=== PATIENT | male | born 2000 | race Caucasian/White ===

== ENCOUNTER 2024-08-30 16:03 | Outpatient (CLI) | payer OTHER ==
--- NOTE | 2024-08-30 18:29 | RADIOLOGY REPORT ---
CLINICAL INDICATION: ACHILLES TENINITIS, R/L, EFFUSION R/L ANKLE COMPARISON: None TECHNIQUE: Multiplanar, multisequence MRI of the left ankle was performed without intravenous contra st. Contrast: None INTERPRETATION: Bones: No evidence of acute fracture. Patchy bone marrow edema in the distal tibia and the talus Alignment: Unremarkable. Ligaments: The anterior talofibular ligament is intact. The posterior talofibular ligament is intact. The calcaneofibular ligament is intact. The inferior tibiofibular ligaments are intact. The visualiz ed portions of the deltoid and spring ligaments are intact. Tendons:The Achilles tendon is intact. The peroneal tendons are intact. The posterior tibialis, fle xor hallucis longus and flexor digitorum longus tendons are intact. The dorsal extensor tendons are intact. Plantar Fascia: The medial cord of the plantar fascia is intact. Bursae: The retroachilles bursa is not fluid distended. The retrocalcaneal bursa is not fluid diste nded. Mass/Fluid: No significant joint effusion. No mass or fluid in the sinus tarsi. Muscles: Intrinsic muscles of the foot are unremarkable. IMPRESSION: 1. Patchy bone marrow edema in the distal tibia and talus of the left ankle is nonspecific. No acute fracture or marrow replacing lesion. Findings could be related to impaction injury or stress reactio n. 2. No Achilles tendinopathy or tear.
--- NOTE | 2024-08-30 18:41 | RADIOLOGY REPORT ---
CLINICAL INDICATION: RT ANKLE ACHILLES COMPARISON: None TECHNIQUE: Multiplanar, multisequence MRI of the right ankle was performed without intravenous contr ast. Contrast: None INTERPRETATION: Bones: No evidence of acute fracture. No evidence of marrow replacing lesion. Alignment: Unremarkable. Ligaments: The anterior talofibular ligament is intact. The posterior talofibular ligament is intact. The calcaneofibular ligament is intact. The inferior tibiofibular ligaments are intact. Ossification in the deltoid ligament suggesting old injury. Spring ligament is intact. Tendons:The Achilles tendon is intact. The peroneal tendons are intact. The posterior tibialis, fle xor hallucis longus and flexor digitorum longus tendons are intact. The dorsal extensor tendons are intact. Plantar Fascia: The medial cord of the plantar fascia is intact. Bursae: The retroachilles bursa is not fluid distended. The retrocalcaneal bursa is not fluid diste nded. Mass/Fluid: No significant joint effusion. No mass or fluid in the sinus tarsi. Muscles: Intrinsic muscles of the foot are unremarkable. Soft tissues: There is a low signal intensity focus in the skin could reflect calcification or foreig n body. IMPRESSION: 1. Achilles tendon intact in the right ankle. 2. Remote injury to the deltoid ligament. 3. No acute soft tissue or osseous abnormality.
== END 2024-08-30 23:59 | disposition home or self-care (01) ==
LOC: MRI02 16:03
PROVIDERS: ATTEND Podiatrist Foot & Ankle Surgery
DX: S99.911A Unspecified injury of right ankle, initial encounter (principal); M76.61 Achilles tendinitis, right leg; M76.62 Achilles tendinitis, left leg; M25.471 Effusion, right ankle; M25.472 Effusion, left ankle; M79.671 Pain in right foot; M79.672 Pain in left foot; R93.7 Abnormal findings on diagnostic imaging of other parts of musculoskeletal system; M76.72 Peroneal tendinitis, left leg; X58.XXXA Exposure to other specified factors, initial encounter; Y93.89 Activity, other specified; Y92.89 Other specified places as the place of occurrence of the external cause; Y99.8 Other external cause status
CPT/HCPCS: 73721